=== PATIENT | female | born 1955 | race Caucasian/White ===

== ENCOUNTER 2016-11-02 10:23 | Outpatient (CLI) | payer OTHER | END 2016-11-02 10:24 | disposition home or self-care (01) | LOC: NC 10:23 | PROVIDERS: ATTEND Internal Medicine | DX: E11.9 Type 2 diabetes mellitus without complications (principal); Z71.3 Dietary counseling and surveillance; Z79.84 Long term (current) use of oral hypoglycemic drugs; Z68.42 Body mass index [BMI] 45.0-49.9, adult ==

== ENCOUNTER 2016-11-07 09:30 | Outpatient (CLI) | payer OTHER | END 2016-11-07 09:31 | disposition home or self-care (01) | LOC: NC 09:30 | PROVIDERS: ATTEND Internal Medicine | DX: E11.9 Type 2 diabetes mellitus without complications (principal); Z71.3 Dietary counseling and surveillance; Z68.42 Body mass index [BMI] 45.0-49.9, adult; E66.9 Obesity, unspecified ==

== ENCOUNTER 2016-11-21 12:54 | Outpatient (CLI) | payer OTHER | END 2016-11-21 12:55 | disposition home or self-care (01) | LOC: NC 12:54 | PROVIDERS: ATTEND Internal Medicine | DX: E11.9 Type 2 diabetes mellitus without complications (principal) ==